=== PATIENT | female | born 1975 | race Caucasian/White ===

== ENCOUNTER 2021-02-12 23:46 | Emergency (ER) | payer OTHER ==
[2021-02-12 23:53] VITALS: BMI 26.6
[2021-02-12] MEDS ORDERED: KETOROLAC TROMETHAMINE 60 MG/2 ML VIAL IM ONE (23:53)
[2021-02-12] MEDS ORDERED: METOCLOPRAMIDE HCL 10 MG TABLET (FP) PO ONE ×2 (23:54→23:57)
[2021-02-12] MEDS ORDERED: KETOROLAC TROMETHAMINE 60 MG/2 ML VIAL ONE (23:57)
[2021-02-13 00:03] VITALS: TEMP 98.7
[2021-02-13 00:04] VITALS: BP 99/63; PULSE 56
== END 2021-02-13 01:26 | disposition home or self-care (01) ==
LOC: FER 23:46
PROC: 3E0233Z Introduction of Anti-inflammatory into Muscle, Percutaneous Approach (ICD-10-PCS; principal; 2021-02-12)
DX: G43.909 Migraine, unspecified, not intractable, without status migrainosus (principal)
CPT/HCPCS: 99284-25

== ENCOUNTER 2021-05-30 17:11 | Emergency (ER) | payer OTHER ==
[2021-05-30 18:12] VITALS: BP 107/72; PULSE 65; TEMP 98.8; BMI 36.4
[2021-05-30] MEDS ORDERED: METOCLOPRAMIDE HCL 10 MG TABLET (FP) PO ONE ×2 (18:15→18:20)
[2021-05-30] MEDS ORDERED: KETOROLAC TROMETHAMINE 60 MG/2 ML VIAL IM ONE (18:15)
[2021-05-30] MEDS ORDERED: KETOROLAC TROMETHAMINE 60 MG/2 ML VIAL ONE (18:20)
== END 2021-05-30 19:08 | disposition home or self-care (01) ==
LOC: FER 17:11
PROC: 3E0233Z Introduction of Anti-inflammatory into Muscle, Percutaneous Approach (ICD-10-PCS; principal; 2021-05-30)
DX: G44.209 Tension-type headache, unspecified, not intractable (principal)
CPT/HCPCS: 81025; 99284-25

== ENCOUNTER 2021-08-04 07:29 | Emergency (ER) | payer OTHER ==
[2021-08-04 07:44] VITALS: BP 109/85; PULSE 73; TEMP 98.8; BMI 34.9
[2021-08-04] MEDS ORDERED: KETOROLAC TROMETHAMINE 30 MG/1 ML VIAL IM ONE (08:11)
[2021-08-04] MEDS ORDERED: LIDOCAINE 5% TOPICAL PATCH TP ONE (08:11)
[2021-08-04] MEDS ORDERED: KETOROLAC TROMETHAMINE 30 MG/1 ML VIAL ONE (08:27)
[2021-08-04] MEDS ORDERED: LIDOCAINE 5% TOPICAL PATCH ONE (08:28)
[2021-08-04] MEDS ORDERED: LIDOCAINE PATCH REMOVAL MC SCH (22:00)
== END 2021-08-04 08:54 | disposition home or self-care (01) ==
LOC: FER 07:29
PROC: 3E0233Z Introduction of Anti-inflammatory into Muscle, Percutaneous Approach (ICD-10-PCS; principal; 2021-08-04)
DX: M54.9 Dorsalgia, unspecified (principal)
CPT/HCPCS: 71046-TC-FY; 71101-TC-RT-FY; 93005; 99285-25